=== PATIENT | female | born 1995 | race Caucasian/White ===

== ENCOUNTER 2017-03-18 19:10 | Emergency (ER) | payer MEDICAID, OTHER ==
[~2017-03-18] VITALS: Ht 172.7 cm; Wt 60.0 kg
[~2017-03-18 19:10] MED LIST: ALBU6.7H INH; BUSP5TAB PO; CELE20TA PO; CLAR10CA3 PO; MONOTAB PO; PERI8.6T PO; PHEN60SU RECTAL
[2017-03-18 19:13] VITALS: BP 134/69; PULSE 84; RESP 16; TEMP 98.1; O2SAT 98
--- NOTE | 2017-03-18 19:50 | PD ---
Physical Exam Date Seen by Provider: Mar 18, 2017 Time Seen by Provider: 19:49 Narrative 21 yo female here for syncope. Had an episode yesterday night while playing with fiance. Lasted about a minute. Came in today as they do not have a ride. No head injury as far as he knows. Feels pre syncopal today. No history of this in the past. Vitals stable in triage. Awaiting bed placement. Data Data Last Documented VS Vital Signs Date Time Temp Pulse Resp B/P (MAP) Pulse Ox O2 Delivery O2 Flow Rate FiO2 03/18/17 19:13 98.1 84 16 134/69 (90) 98 MDM Medical Record Reviewed: Yes Supervised Visit with ARIADNA: No Jarrett Koroma Mar 18, 2017 19:50
[2017-03-18] MEDS ORDERED: SODIUM CHLOR 0.9% 1000 ML INJ 1,000 ML IV ONE (20:37)
--- NOTE | 2017-03-18 20:39 | PD ---
HPI Chief Complaint: Seizure Time Seen by Provider: 20:28 Travel History International Travel<30 days: No Contact w/Intl Traveler<30days: No Traveled to known affect area: No History of Present Illness HPI 21-year-old female presents to the emergency department for evaluation of possible syncopal episode versus seizure that occurred last night around 6 PM. She states that her and her boyfriend were playing around with a stethoscope that she has when she had a shaking episode and lost consciousness for approximately a minute. Her boyfriend states that it was not like a grand mal seizure, but was mild shaking all over. The patient states that when this started, she noticed a left-sided headache and then does not remember the rest. Her boyfriend states that when she came to, she was confused. The patient states she felt like she was then had another episode while in the waiting room , but did not. The patient reports history of mood disorder and takes Celexa and BuSpar. She states her last menstrual cycle was one month ago and states that she could be . She denies any current chest pain or shortness of breath. No abdominal pain. No nausea, vomiting, diarrhea. When asked the patient she's ever had episodes like this before, she states she has them every few months, but has never been evaluated for them. She states she does not drive or have a seasonal driver's license. She denies any alcohol, tobacco, illicit drug use. PFSH Past Medical History Medical History: Denies Significant Hx Bipolar Disorder: Yes Anxiety: Yes Depression: Yes Tetanus Vaccination: Unknown ?: Unknown LMP: 01/07/2017 Past Surgical History Surgical History: No Previous Surgery Social History Alcohol Use: No Tobacco Use: No Substance Use: No Allergies-Medications (Allergen,Severity, Reaction): Coded Allergies: No Known Allergies (Verified , 03/18/17) Reported Meds & Prescriptions Reported Meds & Active Scripts Active Macrobid (Nitrofurantoin Monohydrate Macrocrystals) 100 Mg Capsule 100 Mg PO BID 7 Days Celexa (Citalopram Hydrobromide) 20 Mg Tab 20 Mg PO DAILY Buspirone (Buspirone HCl) 5 Mg Tab 5 Mg PO BID Proventil Hfa 6.7 GM Inh (Albuterol Sulfate) 90 Mcg/Act Aer 1 Puff INH Q6HR PRN Claritin (Loratadine) 10 Mg Cap 10 Mg PO DAILY Mononessa (Norgestimate-Ethinyl Estradiol) 0.25-35 Mg-Mcg Tab 1 Tab PO DAILY Review of Systems Except as stated in HPI: all other systems reviewed are Neg Physical Exam Narrative GENERAL: Well-nourished, well-developed female patient, ambulatory. Afebrile. SKIN: Focused skin assessment warm/dry. HEAD: Normocephalic. Atraumatic. EYES: No scleral icterus. No injection or drainage. PERRLA. EOM intact. NECK: Supple, trachea midline. No JVD or lymphadenopathy. CARDIOVASCULAR: Regular rate and rhythm without murmurs, gallops, or rubs. Bilateral radial and pedal pulses are 2+. RESPIRATORY: Breath sounds equal bilaterally. No accessory muscle use. Lungs sounds are clear to auscultation. GASTROINTESTINAL: Abdomen soft, non-tender, nondistended. MUSCULOSKELETAL: No cyanosis, or edema. BACK: Nontender without obvious deformity. No CVA tenderness. Data Data Last Documented VS Vital Signs Date Time Temp Pulse Resp B/P (MAP) Pulse Ox O2 Delivery O2 Flow Rate FiO2 03/18/17 19:13 98.1 84 16 134/69 (90) 98 Orders Orders Complete Blood Count With Diff (03/18/17 20:37) Drug Screen, Random Urine (03/18/17 20:37) Electrocardiogram (03/18/17 ) Ct Brain W/O Iv Contrast(Rout) (03/18/17 ) Blood Glucose (03/18/17 20:37) Ecg Monitoring (03/18/17 20:37) Iv Access Insert/Monitor (03/18/17 20:37) Oximetry (03/18/17 20:37) Comprehensive Metabolic Panel (03/18/17 20:37) Sodium Chlor 0.9% 1000 Ml Inj (Ns 1000 M (03/18/17 20:37) Sodium Chloride 0.9% Flush (Ns Flush) (03/18/17 20:45) Urinalysis - C+S If Indicated (03/18/17 20:37) Creatine Kinase (Cpk) (03/18/17 20:37) Troponin I (03/18/17 20:37) Magnesium (Mg) (03/18/17 20:37) Ed Urine Pregnancytest Poc (03/18/17 20:37) Urine Culture (03/18/17 20:00) Labs Laboratory Tests Test 03/18/17 20:00 03/18/17 20:50 Urine Color YELLOW Urine Turbidity HAZY Urine pH 5.5 Urine Specific [place] 1.028 Urine Protein TRACE mg/dL Urine Glucose (UA) NEG mg/dL Urine Ketones NEG mg/dL Urine Occult Blood TRACE Urine Nitrite NEG Urine Bilirubin NEG Urine Urobilinogen LESS THAN 2.0 MG/DL Urine Leukocyte Esterase MOD Urine RBC 3 /hpf Urine WBC 21 /hpf Urine Squamous Epithelial Cells 4 /hpf Urine Mucus FEW /lpf Microscopic Urinalysis Comment CULTURE INDICATED Urine Opiates Screen NEG Urine Barbiturates Screen NEG Urine Amphetamines Screen NEG Urine Benzodiazepines Screen NEG Urine Cocaine Screen NEG Urine Cannabinoids Screen NEG White Blood Count 6.7 TH/MM3 Red Blood Count 4.42 MIL/MM3 Hemoglobin 13.4 GM/DL Hematocrit 39.9 % Mean Corpuscular Volume 90.3 FL Mean Corpuscular Hemoglobin 30.4 PG Mean Corpuscular Hemoglobin Concent 33.7 % Red Cell Distribution Width 12.9 % Platelet Count 253 TH/MM3 Mean Platelet Volume 8.7 FL Neutrophils (%) (Auto) 60.5 % Lymphocytes (%) (Auto) 29.5 % Monocytes (%) (Auto) 7.6 % Eosinophils (%) (Auto) 1.6 % Basophils (%) (Auto) 0.8 % Neutrophils # (Auto) 4.1 TH/MM3 Lymphocytes # (Auto) 2.0 TH/MM3 Monocytes # (Auto) 0.5 TH/MM3 Eosinophils # (Auto) 0.1 TH/MM3 Basophils # (Auto) 0.1 TH/MM3 CBC Comment DIFF FINAL Differential Comment Blood Urea Nitrogen 14 MG/DL Creatinine 0.95 MG/DL Random Glucose 99 MG/DL Total Protein 8.1 GM/DL Albumin 4.1 GM/DL Calcium Level 9.1 MG/DL Magnesium Level 2.1 MG/DL Alkaline Phosphatase 98 U/L Aspartate Amino Transf (AST/SGOT) 11 U/L Alanine Aminotransferase (ALT/SGPT) 32 U/L Total Bilirubin 0.4 MG/DL Sodium Level 140 MEQ/L Potassium Level 3.5 MEQ/L Chloride Level 106 MEQ/L Carbon Dioxide Level 25.7 MEQ/L Anion Gap 8 MEQ/L Estimat Glomerular Filtration Rate 75 ML/MIN Total Creatine Kinase 35 U/L Troponin I 0.02 NG/ML MDM Medical Decision Making Medical Screen Exam Complete: Yes Emergency Medical Condition: Yes Medical Record Reviewed: Yes Interpretation(s) Last Impressions Head CT 03/18/17 0000 Signed Impressions: Service Date/Time: Saturday, March 18, 2017 21:25 - CONCLUSION: Negative noncontrast head CT. Alejandro Stewart MD Differential Diagnosis Seizure versus syncope versus electrolyte abnormality versus intracranial abnormality Narrative Course 21-year-old female presents to the emergency department for evaluation of possible syncope versus seizure. She states this happens every few months, but never been evaluated. EKG shows sinus rhythm, heart rate 88, no acute ST changes. CBC, CMP, magnesium, CK, troponin, UA, urine test are ordered and pending. CT of the brain is ordered and pending. Patient is given normal saline 1 L IV bolus. CBC shows no acute abnormality. CMP shows no acute abnormal. Magnesium is 2.1. CK is 35. Troponin is 0.02. UA shows moderate leukocyte esterase, 21 WBC , culture indicated. UPT is negative. Urine drug screen is negative. CT of the brain is negative. Nurse stated that the patient had an episode where she was shaking here in the emergency department. However, this was not seizure activity and she was coherent throughout her shakiness. She was also able to grab for the TV remote when it started to fall. The nurse stated this was definitely not seizure activity. I discussed the case with my attending physician, Dr. Perez, who agrees on plan and disposition. Patient is instructed to follow up with neurology. She is to return here for any acute, worsening of symptoms. The patient was discharged in stable condition with instructions, including return instructions and follow up instructions. Diagnosis Primary Impression: Syncope Qualified Codes: R55 - Syncope and collapse Additional Impression: Urinary tract infection Qualified Codes: N30.00 - Acute cystitis without hematuria Referrals: Neurologist call for appointment Primary Care Physician call for appointment Patient Instructions: General Instructions, Syncope (ED), Urinary Tract Infection in Women (ED) Additional Instructions: Take antibiotic as directed until gone. Follow-up with your primary care physician and neurologist. Return to the emergency department for any acute worsening of symptoms. Med/Other Pt SpecificInfo: Prescription(s) given, No Change to Meds Scripts Nitrofurantoin Monohydrate Macrocrystals (Macrobid) 100 Mg Capsule 100 MG PO BID for Infection for 7 Days, #14 CAP 0 Refills Prov: Miladys Long 03/18/17 Disposition: 01 DISCHARGE HOME Condition: Stable Miladys Long Mar 18, 2017 20:39
[2017-03-18] MEDS ORDERED: SODIUM CHLORIDE 0.9% FLUSH 10 ML FLUSH IVF PRN (20:45)
[2017-03-18 21:11] LABS: BLOOD, URINE TRACE (NEG); COMMENT (UR) CULTURE INDICATED; CULTURE IF INDICATED CULTURE INDICATED; GLUCOSE,URINE NEG (NEG); KETONE, URINE NEG (NEG); MUCUS URINE FEW /lpf (OCC); NITRITE,URINE NEG (NEG); PH, URINE 5.5 (5.0-8.5); SQUAMOUS EPITHELIAL CELL URINE 4 /hpf (0-5); URINE COLOR YELLOW (YELLW/STRAW)
[2017-03-18 21:28] LABS: AUTOMATED NEUTROPHIL # 4.1 TH/MM3 (1.8-7.7); BASOPHIL # 0.1 TH/MM3 (0-0.2); BASOPHIL % 0.8 % (0.0-2.0); EOSINOPHIL # 0.1 TH/MM3 (0-0.4); EOSINOPHIL % 1.6 % (0.0-4.0); HEMATOCRIT 39.9 % (35.0-46.0); HEMO FLAGS DIFF FINAL; LYMPH % 29.5 % (9.0-44.0); MEAN CELL VOLUME 90.3 FL (80.0-100.0); MEAN CORPUSCULAR HEMOGLOBIN 30.4 PG (27.0-34.0); MEAN CORPUSCULAR HGB CONC 33.7 % (32.0-36.0); MONO % 7.6 % (0.0-8.0); NEUT % 60.5 % (16.0-70.0); PLATELET COUNT 253 TH/MM3 (150-450); RED BLOOD COUNT 4.42 MIL/MM3 (4.00-5.30); RED CELL DISTRIBUTION WIDTH 12.9 % (11.6-17.2); WHITE BLOOD COUNT 6.7 TH/MM3 (4.0-11.0)
[2017-03-18 21:36] LABS: ANION GAP 8 MEQ/L (5-15); AST (GOT) 11 U/L (16-38); BICARBONATE 25.7 MEQ/L (21.0-32.0); BLOOD UREA NITROGEN 14 MG/DL (7-18); CHLORIDE 106 MEQ/L (98-107); GLOMERULAR FILTRATION RATE 75 ML/MIN (>89); MAGNESIUM 2.1 MG/DL (1.5-2.5); POTASSIUM 3.5 MEQ/L (3.5-5.1); SODIUM (NA) 140 MEQ/L (136-145)
[2017-03-18 21:37] LABS: ALT (GPT) 32 U/L (9-42)
[2017-03-18 21:41] LABS: ALKALINE PHOSPHATASE 98 U/L (45-117); TOTAL BILIRUBIN ADULT 0.4 MG/DL (0.2-1.0)
[2017-03-18 21:42] LABS: CREATINE KINASE 35 U/L (26-192)
--- NOTE | 2017-03-18 22:15 | RADRPT ---
EXAM DATE/TIME: 03/18/2017 21:25 [facility] COMPARISON: No previous studies available for comparison. INDICATIONS : Seizures. RADIATION DOSE: 56.35 CTDIvol (mGy) MEDICAL HISTORY : None SURGICAL HISTORY : None. ENCOUNTER: Initial ACUITY: 1 day PAIN SCALE: 0/10 LOCATION: cranial TECHNIQUE: Multiple contiguous axial images were obtained of the head. Using automated exposure control and adj ustment of the mA and/or kV according to patient size, radiation dose was kept as low as reasonably a chievable to obtain optimal diagnostic quality images. DICOM format image data is available electro nically for review and comparison. FINDINGS: CEREBRUM: The ventricles are normal. No evidence of midline shift, mass lesion, hemorrhage or acute infarction . No extra-axial fluid collections are seen. POSTERIOR FOSSA: The cerebellum and brainstem demonstrate no abnormality. The 4th ventricle is midline. The cerebell opontine angle is unremarkable. EXTRACRANIAL: Visualized sinuses are clear. SKULL: The calvaria is intact. No evidence of skull fracture. CONCLUSION: Negative noncontrast head CT. Alejandro Stewart MD on March 18, 2017 at 22:12 Board Certified Radiologist. This report was verified electronically.
[2017-03-18] MEDS ORDERED: MACR100C2 PO (22:59)
[2017-03-18] MEDS ORDERED: NITROFURANTOIN MONOHYD MACROCR 100 MG CAP PO ONE (23:15)
[2017-03-18 23:42] VITALS: BP 102/61
--- NOTE | 2017-03-19 12:02 | EKG ---
Date Performed: 03/18/2017 Time Performed: 20:44:03 PTAGE: 21 years EKG: Sinus rhythm WITH SINUS ARRHYTHMIA NORMAL ECG NO PREVIOUS TRACING DOCTOR: Scar Perez Interpretating Date/Time 03/19/2017 12:00:47
== END 2017-03-18 23:46 | disposition home or self-care (01) ==
LOC: NEPC 19:10
DX: R55 Syncope and collapse (principal); N30.00 Acute cystitis without hematuria; B96.89 Other specified bacterial agents as the cause of diseases classified elsewhere; Z79.899 Other long term (current) drug therapy
CPT/HCPCS: 70450; 80053; 80307; 81001; 82550; 83735; 84484; 84703; 85025; 87086; 93005; 96360; 99285; J7030

== ENCOUNTER 2017-09-16 20:42 | Emergency (ER) | payer OTHER ==
[~2017-09-16 20:42] MED LIST changes: +MACR100C2 PO; -PERI8.6T PO; -PHEN60SU RECTAL
[2017-09-16 20:48] VITALS: BP 122/75; PULSE 113; RESP 18; TEMP 97.6; O2SAT 94
--- NOTE | 2017-09-16 21:55 | RADRPT ---
EXAM DATE/TIME: 09/16/2017 21:01 [facility] COMPARISON: No previous studies available for comparison. INDICATIONS : Coughing up blood and chest pain that started today. MEDICAL HISTORY : None. SURGICAL HISTORY : None. ENCOUNTER: Initial ACUITY: 1 day PAIN SCORE: 2/10 LOCATION: Bilateral chest FINDINGS: PA and lateral views of the chest demonstrate the lungs to be symmetrically aerated without evidence of mass, infiltrate or effusion. The cardiomediastinal contours are unremarkable. Osseous structure s are intact. CONCLUSION: No acute disease. Declan Rai MD on September 16, 2017 at 21:52 Board Certified Radiologist. This report was verified electronically.
[2017-09-16] MEDS ORDERED: OMEP20TA93 PO (23:08)
[2017-09-16] MEDS ORDERED: AZIT250T3 PO (23:08)
[2017-09-16] MEDS ORDERED: CLAR10CA3 PO (23:08)
[2017-09-16] MEDS ORDERED: ALBU6.7H INH (23:08)
--- NOTE | 2017-09-16 23:08 | PD ---
HPI Chief Complaint: Respiratory Symptoms Time Seen by Provider: 22:44 Travel History International Travel<30 days: No Contact w/Intl Traveler<30days: No Traveled to known affect area: No History of Present Illness HPI 22-year-old female complains of hemoptysis a minute amount which occurred a couple hours prior to ER arrival. She also reports some dyspnea. She describes sore throat as well. She has had no fever. She describes a cough for about 8 weeks. She complains of runny nose and some chest pain that occurs with the coughing. She has had no vomiting. She denies diarrhea. She does not smoke. PFS Past Medical History Bipolar Disorder: Yes Anxiety: Yes Depression: Yes ?: Unknown LMP: 07/10/2017 Past Surgical History Surgical History: No Previous Surgery Social History Alcohol Use: No Tobacco Use: No Substance Use: No Allergies-Medications (Allergen,Severity, Reaction): Coded Allergies: No Known Allergies (Verified , 03/18/17) Reported Meds & Prescriptions Reported Meds & Active Scripts Active Macrobid (Nitrofurantoin Monohydrate Macrocrystals) 100 Mg Capsule 100 Mg PO BID 7 Days Celexa (Citalopram Hydrobromide) 20 Mg Tab 20 Mg PO DAILY Buspirone (Buspirone HCl) 5 Mg Tab 5 Mg PO BID Proventil Hfa 6.7 GM Inh (Albuterol Sulfate) 90 Mcg/Act Aer 1 Puff INH Q6HR PRN Claritin (Loratadine) 10 Mg Cap 10 Mg PO DAILY Mononessa (Norgestimate-Ethinyl Estradiol) 0.25-35 Mg-Mcg Tab 1 Tab PO DAILY Review of Systems Except as stated in HPI: all other systems reviewed are Neg General / Constitutional: No: Fever Eyes: No: Diploplia Cardiovascular: Positive: Chest Pain or Discomfort Respiratory: Positive: Cough Physical Exam Narrative GENERAL: 22-year-old female pleasant well-nourished well-developed no acute distress Vital Signs Date Time Temp Pulse Resp B/P (MAP) Pulse Ox O2 Delivery O2 Flow Rate FiO2 09/16/17 20:48 97.6 113 18 122/75 (91) 94 SKIN: Warm and dry. HEAD: Atraumatic. Normocephalic. EYES: Pupils equal and round. No scleral icterus. No injection or drainage. ENT: No nasal bleeding or discharge. Mucous membranes pink and moist. NECK: Trachea midline. No JVD. CARDIOVASCULAR: Heart rate assessed by radial artery palpation at about 10:40 PM was 90. It was regular. RESPIRATORY: Lungs clear. No tachypnea or dyspnea. GASTROINTESTINAL: Abdomen soft, non-tender, nondistended. Hepatic and splenic margins not palpable. MUSCULOSKELETAL: Extremities without clubbing, cyanosis, or edema. No obvious deformities. NEUROLOGICAL: Awake and alert. No obvious cranial nerve deficits. Motor grossly within normal limits. Five out of 5 muscle strength in the arms and legs. Normal speech. PSYCHIATRIC: Appropriate mood and affect; insight and judgment normal. Data Data Last Documented VS Vital Signs Date Time Temp Pulse Resp B/P (MAP) Pulse Ox O2 Delivery O2 Flow Rate FiO2 09/16/17 20:48 97.6 113 18 122/75 (91) 94 Vital signs reviewed Orders Orders Complete Blood Count With Diff (09/16/17 20:51) Basic Metabolic Panel (Bmp) (09/16/17 20:51) Chest, Pa & Lat (09/16/17 ) Urinalysis - C+S If Indicated (09/16/17 20:51) Ed Urine Pregnancytest Poc (09/16/17 20:51) Coag Profile (09/16/17 20:51) MDM Medical Decision Making Medical Screen Exam Complete: Yes Emergency Medical Condition: Yes Medical Record Reviewed: Yes Differential Diagnosis Pneumonia, CHF, URI, anemia, metabolic disarray Narrative Course Chest x-ray shows no acute disease Patient is quite well-appearing overall stable vital signs. Presentation considered to be most in keeping with postnasal drip with or without bronchitis and/or mild pharyngitis. Streptococcal pharyngitis considered less likely overall. Scripts as below. Diagnosis Primary Impression: URI (upper respiratory infection) Qualified Codes: J06.9 - Acute upper respiratory infection, unspecified Additional Impressions: Postnasal discharge Cough Referrals: Primary Care Physician call for appointment Med/Other Pt SpecificInfo: Prescription(s) given Scripts Omeprazole (Omeprazole) 20 Mg Tab 20 MG PO DAILY, #30 TAB 0 Refills Prov: Arthur Mccord MD 09/16/17 Azithromycin (Azithromycin) 250 Mg Tab 250 MG PO DIRECTED for Infection, #6 TAB 0 Refills Take 2 tabs (500 mg) on day 1 then 1 tab daily x 4 days. Prov: Arthur Mccord MD 09/16/17 Albuterol 6.7 GM Inh (Proventil Hfa 6.7 GM Inh) 90 Mcg/Act Aer 1 PUFF INH Q6HR Y for SHORTNESS OF BREATH, #1 INHALER 5 Refills Prov: Arthur Mccord MD 09/16/17 Loratadine (Claritin) 10 Mg Cap 10 MG PO DAILY for Allergy Management, #30 CAP 11 Refills Prov: Arthur Mccord MD 09/16/17 Disposition: 01 DISCHARGE HOME Condition: Stable Arthur Mccord MD Sep 16, 2017 23:08
[2017-09-16] MEDS ORDERED: ALBUTEROL SULFATE 90 MCG/ACT HFA 8 GM INHALER INH ONE (23:15)
[2017-09-16] MEDS ORDERED: diphenhydrAMINE HCL 25 MG CAP PO ONE (23:15)
[2017-09-16] MEDS ORDERED: AZITHROMYCIN 250 MG TAB PO ONE (23:15)
== END 2017-09-16 23:35 | disposition home or self-care (01) ==
LOC: NED 20:42 → NEPD 23:35
DX: J06.9 Acute upper respiratory infection, unspecified (principal); F31.9 Bipolar disorder, unspecified
CPT/HCPCS: 71046; 84703; 99284

== ENCOUNTER 2017-10-07 14:56 | Emergency (ER) | payer OTHER ==
[~2017-10-07 14:56] MED LIST changes: +AZIT250T3 PO; +OMEP20TA93 PO
[2017-10-07 15:13] VITALS: BP 112/66; PULSE 78; RESP 16; TEMP 97.4; O2SAT 99
[2017-10-07 16:18] LABS: BILIRUBIN, URINE NEG (NEG); BLOOD, URINE LARGE (NEG); GLUCOSE,URINE NEG (NEG); KETONE, URINE TRACE mg/dL (NEG); MUCUS URINE FEW /lpf (OCC); NITRITE,URINE NEG (NEG); SQUAMOUS EPITHELIAL CELL URINE 5 /hpf (0-5); URINE COLOR YELLOW (YELLW/STRAW); URINE LEUKOCYTE ESTERASE TRACE (NEG)
--- NOTE | 2017-10-07 16:57 | PD ---
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 She is also complaining of pelvic pain and abnormal vaginal discharge and odor 1 year. Says she has been treated for urinary tract infections every month for the past 11 months with reoccurrence. Denies risk of and since she last had intercourse 5 months ago. Denies dysuria. Reports hematuria, increased urine frequency, hesitancy. Denies fever , vomiting, abdominal pain. Has been taking ibuprofen and Aleve with some relief of her pain. Rates pain 10. Describes it as a pressure. Primary care provider is Dr. Rg. No known allergies. History of chronic UTI and asthma. Has no other medical complaints. No other modifying factors or associated signs and symptoms. PFSH Past Medical History Medical History: Denies Significant Hx Bipolar Disorder: Yes Anxiety: Yes Depression: Yes Diminished Hearing: No ?: Not LMP: 2 WEEKS AGO Past Surgical History Surgical History: No Previous Surgery Social History Alcohol Use: No Tobacco Use: No Substance Use: No Allergies-Medications (Allergen,Severity, Reaction): Coded Allergies: No Known Allergies (Verified , 03/18/17) Reported Meds & Prescriptions Reported Meds & Active Scripts Active Omeprazole 20 Mg Tab 20 Mg PO DAILY Azithromycin 250 Mg Tab 250 Mg PO DIRECTED Take 2 tabs (500 mg) on day 1 then 1 tab daily x 4 days. Proventil Hfa 6.7 GM Inh (Albuterol Sulfate) 90 Mcg/Act Aer 1 Puff INH Q6HR PRN Claritin (Loratadine) 10 Mg Cap 10 Mg PO DAILY Macrobid (Nitrofurantoin Monohydrate Macrocrystals) 100 Mg Capsule 100 Mg PO BID 7 Days Celexa (Citalopram Hydrobromide) 20 Mg Tab 20 Mg PO DAILY Buspirone (Buspirone HCl) 5 Mg Tab 5 Mg PO BID Mononessa (Norgestimate-Ethinyl Estradiol) 0.25-35 Mg-Mcg Tab 1 Tab PO DAILY Review of Systems Except as stated in HPI: all other systems reviewed are Neg Physical Exam Narrative GENERAL: Well-nourished, well-developed female patient, in no acute distress; afebrile, nontoxic-appearing SKIN: Warm and dry. HEAD: Atraumatic. Normocephalic. EYES: Pupils equal and round. No scleral icterus. No injection or drainage. ENT: Mucous membranes pink and moist. NECK: Trachea midline. No lymphadenopathy. CARDIOVASCULAR: Regular rate and rhythm. No murmur appreciated. RESPIRATORY: No accessory muscle use. Clear to auscultation. Breath sounds equal bilaterally. GASTROINTESTINAL: Abdomen soft, non-tender, nondistended. Bilateral pelvic region nontender to palpation. Hepatic and splenic margins not palpable. No guarding, rigidity, rebound tenderness. Bladder is tender and nondistended. PELVIC: Exam done in the presence of a nurse. Speculum exam reveals nonedematous and nonerythematous cervix minimal amount of bright red, purulent drainage from the cervix; nonodorous. Bimanual exam reveals no palpable masses or adnexa tenderness, no uterine tenderness. No cervical motion tenderness. BACK: No CVA tenderness. MUSCULOSKELETAL: No obvious deformities. No clubbing. No cyanosis. No edema. NEUROLOGICAL: Awake and alert. No obvious cranial nerve deficits. Motor grossly within normal limits. Normal speech. PSYCHIATRIC: Appropriate mood and affect; insight and judgment normal. Data Data Last Documented VS Vital Signs Date Time Temp Pulse Resp B/P (MAP) Pulse Ox O2 Delivery O2 Flow Rate FiO2 10/07/17 15:13 97.4 78 16 112/66 (81) 99 Orders Orders Gc And Chlamydia Pcr (10/07/17 15:28) Wet Prep Profile (10/07/17 15:28) Urinalysis - C+S If Indicated (10/07/17 15:28) Ed Urine Pregnancytest Poc (10/07/17 15:28) Ibuprofen (Motrin) (10/07/17 17:00) Labs Laboratory Tests Test 10/07/17 15:50 Urine Color YELLOW Urine Turbidity CLEAR Urine pH 6.0 Urine Specific [place] 1.026 Urine Protein TRACE mg/dL Urine Glucose (UA) NEG mg/dL Urine Ketones TRACE mg/dL Urine Occult Blood LARGE Urine Nitrite NEG Urine Bilirubin NEG Urine Urobilinogen 2.0 MG/DL Urine Leukocyte Esterase TRACE Urine RBC /hpf Urine Squamous Epithelial Cells 5 /hpf Urine Mucus FEW /lpf Microscopic Urinalysis Comment CULT NOT INDICATED Clue Cells (Wet Prep) NONE SEEN Vaginal Trichomonas (Wet Prep) NONE SEEN Vaginal Yeast (Wet Prep) NONE SEEN MDM Medical Decision Making Medical Screen Exam Complete: Yes Emergency Medical Condition: Yes Medical Record Reviewed: Yes Differential Diagnosis Urinary tract infection, cystitis, chlamydia, gonorrhea, PID, BV Narrative Course 22-year-old female with symptoms of urinary and vaginal symptoms. Wet prep, chlamydia, gonorrhea, urinalysis, UPT ordered. 1658: Urinalysis without signs of infection. Bacterial vaginosis, Trichomonas, vaginal yeast negative. Chlamydia and gonorrhea pending. Pelvic exam is unremarkable and I do not feel it necessary to treat empirically for pelvic disease. I am suspecting her vaginal spotting/bleeding is either an early onset menses or onset of menses. Instructed patient to follow-up with edge trimmer. Patient provided follow-up information for [facility], and [facility]. Instructed patient to follow up with primary care provider. Patient verbalizes understanding and agreement with treatment plan. Patient is medically cleared and stable for discharge. Discussed reasons to return to the emergency department. Patient agrees with treatment plan. The patients vital signs are stable and the patient is stable for outpatient follow-up and treatment. Patient discharged home, stable and in no acute distress. Diagnosis Primary Impression: Vaginal bleeding Referrals: [facility] Lead Auditor Primary Care Physician [facility] Dept. Patient Instructions: General Instructions, Interstitial Cystitis (ED) Departure Forms: School Release, Return to School Date: Oct 08, 2017 Tests/Procedures, Work Release Enter return to work date: Oct 08, 2017 Additional Instructions: Ibuprofen or Tylenol as directed and as needed for pain Heating pad to affected area as needed to help reduce pain Follow-up with edge trimmer Follow-up with primary care provider Return to the emergency department immediately with worsening of symptoms Med/Other Pt SpecificInfo: No Change to Meds, No Meds Exist/No RX given Disposition: 01 DISCHARGE HOME Condition: Stable Aracelis Davalos Oct 07, 2017 16:57
[2017-10-07] MEDS ORDERED: IBUPROFEN 800 MG TAB PO ONE (17:00)
== END 2017-10-07 17:31 | disposition home or self-care (01) ==
LOC: NEPD 14:56
DX: N93.9 Abnormal uterine and vaginal bleeding, unspecified (principal); J45.909 Unspecified asthma, uncomplicated
CPT/HCPCS: 81001; 84703; 87210; 87491; 87591; 99284

== ENCOUNTER 2017-10-09 14:04 | Emergency (ER) | payer OTHER ==
[~2017-10-09] VITALS: Ht 172.7 cm; Wt 67.0 kg
[2017-10-09 14:15] VITALS: BP 121/58; PULSE 73; RESP 17; TEMP 97.5; O2SAT 99
[2017-10-09 16:11] LABS: AMORPHOUS SEDIMENT, URINE RARE; BACTERIA, URINE OCC /hpf; BILIRUBIN, URINE NEG (NEG); BLOOD, URINE LARGE (NEG); GLUCOSE,URINE NEG (NEG); KETONE, URINE 40 mg/dL (NEG); MUCUS URINE MANY /lpf (OCC); NITRITE,URINE NEG (NEG); SQUAMOUS EPITHELIAL CELL URINE 32 /hpf (0-5); URINE COLOR LIGHT-YELLOW (YELLW/STRAW); URINE LEUKOCYTE ESTERASE LARGE (NEG)
[2017-10-09] MEDS ORDERED: SODIUM CHLORIDE 0.9% FLUSH 10 ML FLUSH IVF PRN (16:15)
[2017-10-09] MEDS ORDERED: KETOROLAC TROMETHAMINE 30 MG/ML (IVP) VIAL IV PUSH ONE (16:15)
--- NOTE | 2017-10-09 16:18 | PD ---
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 She is concerned she is and having a miscarriage. She was seen here on October 07 with vaginal spotting, which has worsened. She says she is bleeding through approximately 10 pads and tampons per day. Denies fever. Reports vomiting one time this morning. Denies dysuria, hematuria. Denies lightheadedness. Says she has been feeling dizzy today. Her last menstrual period was 2 weeks ago. Rates pain 9/10. Has tried taking ibuprofen with no relief of symptoms. No known relieving factors. No known aggravating factors. Primary care provider is Dr. Rg. No known allergies. Denies significant past medical history. Has no other medical complaints. No other modifying factors or associated signs and symptoms. PFSH Past Medical History Bipolar Disorder: Yes Anxiety: Yes Depression: Yes Diminished Hearing: No ?: Unknown Past Surgical History Surgical History: No Previous Surgery Social History Alcohol Use: No Tobacco Use: No Substance Use: No Allergies-Medications (Allergen,Severity, Reaction): Coded Allergies: No Known Allergies (Verified , 03/18/17) Reported Meds & Prescriptions Reported Meds & Active Scripts Active Keflex (Cephalexin) 500 Mg Cap 500 Mg PO Q12H 7 Days Pyridium (Phenazopyridine HCl) 100 Mg Tab 100 Mg PO Q8H PRN 3 Days Omeprazole 20 Mg Tab 20 Mg PO DAILY Azithromycin 250 Mg Tab 250 Mg PO DIRECTED Take 2 tabs (500 mg) on day 1 then 1 tab daily x 4 days. Proventil Hfa 6.7 GM Inh (Albuterol Sulfate) 90 Mcg/Act Aer 1 Puff INH Q6HR PRN Claritin (Loratadine) 10 Mg Cap 10 Mg PO DAILY Macrobid (Nitrofurantoin Monohydrate Macrocrystals) 100 Mg Capsule 100 Mg PO BID 7 Days Celexa (Citalopram Hydrobromide) 20 Mg Tab 20 Mg PO DAILY Buspirone (Buspirone HCl) 5 Mg Tab 5 Mg PO BID Mononessa (Norgestimate-Ethinyl Estradiol) 0.25-35 Mg-Mcg Tab 1 Tab PO DAILY Review of Systems Except as stated in HPI: all other systems reviewed are Neg Physical Exam Narrative GENERAL: Well-nourished, well-developed female patient, in no acute distress; afebrile SKIN: Warm and dry. HEAD: Atraumatic. Normocephalic. EYES: Pupils equal and round. No scleral icterus. No injection or drainage. ENT: Mucosa pink and moist. Airway patent. NECK: Trachea midline. CARDIOVASCULAR: Regular rate and rhythm. No murmur appreciated. RESPIRATORY: No accessory muscle use. Clear to auscultation. Breath sounds equal bilaterally. GASTROINTESTINAL: Abdomen soft, tenderness on palpation to lower pelvic region, nondistended. Hepatic and splenic margins not palpable. Bowel sounds are active 4 quadrants. Nonrigid. No guarding. BACK: No CVA tenderness. MUSCULOSKELETAL: No obvious deformities. No clubbing. No cyanosis. No edema. NEUROLOGICAL: Awake and alert. Oriented 3. No obvious cranial nerve deficits. Motor grossly within normal limits. Normal speech. PSYCHIATRIC: Appropriate mood and affect; insight and judgment normal. Data Data Last Documented VS Vital Signs Date Time Temp Pulse Resp B/P (MAP) Pulse Ox O2 Delivery O2 Flow Rate FiO2 10/09/17 19:17 74 17 118/68 (85) 100 10/09/17 14:15 97.5 Orders Orders Urinalysis - C+S If Indicated (10/09/17 14:37) Ed Urine Pregnancytest Poc (10/09/17 14:37) Complete Blood Count With Diff (10/09/17 16:01) Basic Metabolic Panel (Bmp) (10/09/17 16:01) Iv Access Insert/Monitor (10/09/17 16:01) Sodium Chloride 0.9% Flush (Ns Flush) (10/09/17 16:15) Ketorolac Inj (Toradol Inj) (10/09/17 16:15) Urine Culture (10/09/17 15:39) Ceftriaxone Inj (Rocephin Inj) (10/09/17 17:00) Us Pelvis Comp W Doppler (10/09/17 ) Ed Discharge Order (10/09/17 18:56) Labs Laboratory Tests Test 10/09/17 15:39 10/09/17 16:17 Urine Color LIGHT-YELLOW Urine Turbidity HAZY Urine pH 5.0 Urine Specific [place] 1.023 Urine Protein TRACE mg/dL Urine Glucose (UA) NEG mg/dL Urine Ketones 40 mg/dL Urine Occult Blood LARGE Urine Nitrite NEG Urine Bilirubin NEG Urine Urobilinogen LESS THAN 2.0 MG/DL Urine Leukocyte Esterase LARGE Urine RBC 160 /hpf Urine WBC 34 /hpf Urine Squamous Epithelial Cells 32 /hpf Urine Amorphous Sediment RARE Urine Bacteria OCC /hpf Urine Mucus MANY /lpf Microscopic Urinalysis Comment CULTURE INDICATED White Blood Count 6.3 TH/MM3 Red Blood Count 4.40 MIL/MM3 Hemoglobin 12.5 GM/DL Hematocrit 38.2 % Mean Corpuscular Volume 86.8 FL Mean Corpuscular Hemoglobin 28.3 PG Mean Corpuscular Hemoglobin Concent 32.6 % Red Cell Distribution Width 15.1 % Platelet Count 226 TH/MM3 Mean Platelet Volume 8.7 FL Neutrophils (%) (Auto) 57.7 % Lymphocytes (%) (Auto) 32.9 % Monocytes (%) (Auto) 5.5 % Eosinophils (%) (Auto) 3.4 % Basophils (%) (Auto) 0.5 % Neutrophils # (Auto) 3.6 TH/MM3 Lymphocytes # (Auto) 2.1 TH/MM3 Monocytes # (Auto) 0.3 TH/MM3 Eosinophils # (Auto) 0.2 TH/MM3 Basophils # (Auto) 0.0 TH/MM3 CBC Comment DIFF FINAL Differential Comment Blood Urea Nitrogen 14 MG/DL Creatinine 0.65 MG/DL Random Glucose 60 MG/DL Calcium Level 9.3 MG/DL Sodium Level 140 MEQ/L Potassium Level 3.6 MEQ/L Chloride Level 106 MEQ/L Carbon Dioxide Level 25.0 MEQ/L Anion Gap 9 MEQ/L Estimat Glomerular Filtration Rate 115 ML/MIN [facility] Medical Decision Making Medical Screen Exam Complete: Yes Emergency Medical Condition: Yes Medical Record Reviewed: Yes Differential Diagnosis Abnormal uterine bleeding, menses, vaginal bleeding Narrative Course This is a 22-year-old female that I saw 2 days ago for vaginal bleeding. At that time she had vaginal spotting that had just started. I did a pelvic exam and she was negative for chlamydia, gonorrhea, trichomonas, bacterial yeast, bacterial vaginosis; her urinalysis was negative; UPT was negative. She returns today with increasing vaginal bleeding. Repeat UPT is negative. Urinalysis, CBC, BMP, pelvic ultrasound, IV, Toradol ordered. 165: Urinalysis for signs of infection. Reflex urine culture. Rocephin 1 g IV ordered. 184: Pelvic ultrasound concludes: Pelvis Ultrasound 10/09/17 0000 Signed Impressions: Service Date/Time: Monday, October 09, 2017 16:59 - CONCLUSION: Complicated cystic mass involving the right ovary. Alejandro Vargas MD Discussed ultrasound findings with the patient and she was provided a copy of the ultrasound report. Discussed findings with Dr. Schroeder and she recommends follow-up with sail finisher machine within 1 week. Keflex, ibuprofen prescribed for home. Instructed patient to follow-up with sail finisher machine within 1 week. Patient verbalized understanding and agreement. Instructed patient to follow up with primary care provider. Patient verbalizes understanding and agreement with treatment plan. Patient is medically cleared and stable for discharge. Discussed reasons to return to the emergency department. Patient agrees with treatment plan. The patients vital signs are stable and the patient is stable for outpatient follow-up and treatment. Patient discharged home, stable and in no acute distress. 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 [facility] Primary Care Physician Patient Instructions: General Instructions, Ovarian Cyst (ED), Urinary Tract Infection in Women (ED) Departure Forms: School Release, Return to School Date: Oct 14, 2017 Tests/Procedures Additional Instructions: Take antibiotics as prescribed and complete full course Take Pyridium for bladder spasms: Pyridium will turn your urine bright orange Drink plenty of fluids Maintain good personal hygiene Follow-up with primary care provider Return to the emergency department immediately with worsening of symptoms Med/Other Pt SpecificInfo: Prescription(s) given Scripts Cephalexin (Keflex) 500 Mg Cap 500 MG PO Q12H for Infection for 7 Days, #14 CAP 0 Refills Prov: Aracelis Davalos CONE CLASSIFIER TENDER 10/09/17 Phenazopyridine (Pyridium) 100 Mg Tab 100 MG PO Q8H Y for DYSURIA for 3 Days, #9 TAB 0 Refills Prov: Aracelis Davalos CONE CLASSIFIER TENDER 10/09/17 Disposition: 01 DISCHARGE HOME Condition: Stable Aracelis Davalos Oct 09, 2017 16:18
[2017-10-09] MEDS ORDERED: CEPH-460 PO (16:56)
[2017-10-09] MEDS ORDERED: PHEN0.4T PO (16:56)
[2017-10-09] MEDS ORDERED: cefTRIAXone INJ 1,000 MG in SODIUM CHLORIDE 0.9% INJ 100 ML IV ONE (17:00)
[2017-10-09 17:09] LABS: AUTOMATED NEUTROPHIL # 3.6 TH/MM3 (1.8-7.7); BASOPHIL % 0.5 % (0.0-2.0); EOSINOPHIL # 0.2 TH/MM3 (0-0.4); EOSINOPHIL % 3.4 % (0.0-4.0); HEMATOCRIT 38.2 % (35.0-46.0); HEMOGLOBIN 12.5 GM/DL (11.6-15.3); LYMPH % 32.9 % (9.0-44.0); LYMPHOCYTE # 2.1 TH/MM3 (1.0-4.8); MEAN CELL VOLUME 86.8 FL (80.0-100.0); MEAN CORPUSCULAR HEMOGLOBIN 28.3 PG (27.0-34.0); MEAN CORPUSCULAR HGB CONC 32.6 % (32.0-36.0); MEAN PLATELET VOLUME 8.7 FL (7.0-11.0); MONO % 5.5 % (0.0-8.0); MONOCYTE # 0.3 TH/MM3 (0-0.9); NEUT % 57.7 % (16.0-70.0); PLATELET COUNT 226 TH/MM3 (150-450); RED CELL DISTRIBUTION WIDTH 15.1 % (11.6-17.2); WHITE BLOOD COUNT 6.3 TH/MM3 (4.0-11.0)
--- NOTE | 2017-10-09 17:41 | RADRPT ---
EXAM DATE/TIME: 10/09/2017 16:59 [facility] COMPARISON: No previous studies available for comparison. INDICATIONS : Cramping and abnormal bleeding. MEDICAL HISTORY : Bipolar disorder. Depression. Anxiety. SURGICAL HISTORY : None. ENCOUNTER: Initial ACUITY: 1 week PAIN SCORE: 4/10 LOCATION: Bilateral pelvis MEASUREMENTS: UTERUS: 7.4 x 3.5 x 3.9 cm ENDOMETRIAL STRIPE: 13 mm RIGHT OVARY: 5.5 x 4.5 x 4.4 cm LEFT OVARY: 3.0 x 2.2 x 1.8 cm FINDINGS: UTERUS: The myometrium has homogeneous echotexture without mass. RIGHT OVARY: Slightly greater than 4 cm complicated cystic mass. LEFT OVARY: Ovary contains no mass or significant cystic lesion. MISCELLANEOUS: No free fluid. CONCLUSION: Complicated cystic mass involving the right ovary. Alejandro Vargas MD on October 09, 2017 at 17:37 Board Certified Radiologist. This report was verified electronically.
[2017-10-09 17:47] LABS: CALCIUM 9.3 MG/DL (8.5-10.1); CREATININE 0.65 MG/DL (0.50-1.00)
[2017-10-09 19:17] VITALS: BP 118/68
== END 2017-10-09 19:19 | disposition home or self-care (01) ==
LOC: NEPD 14:04
DX: N39.0 Urinary tract infection, site not specified (principal); R31.9 Hematuria, unspecified; N83.201 Unspecified ovarian cyst, right side; F31.9 Bipolar disorder, unspecified
CPT/HCPCS: 76856; 80048; 81001; 84703; 85025; 87086; 93975; 96365; 96366; 96375; 99284; J0696; J1885

== ENCOUNTER 2017-10-12 15:27 | Emergency (ER) | payer OTHER ==
[~2017-10-12] VITALS: Ht 167.6 cm; Wt 63.0 kg
[~2017-10-12 15:27] MED LIST changes: +CEPH-460 PO; +PHEN0.4T PO
[2017-10-12 15:35] VITALS: BP 111/63; PULSE 75; RESP 16; TEMP 98.5; O2SAT 100
[2017-10-12 15:52] LABS: BILIRUBIN, URINE NEG (NEG); BLOOD, URINE NEG (NEG); GLUCOSE,URINE NEG (NEG); KETONE, URINE NEG (NEG); NITRITE,URINE NEG (NEG); PH, URINE 6.5 (5.0-8.5); URINE COLOR YELLOW (YELLW/STRAW); URINE LEUKOCYTE ESTERASE NEG (NEG)
[2017-10-12] MEDS ORDERED: IBUP1TAB5 PO (15:59)
[2017-10-12] MEDS ORDERED: TYLE325T PO (15:59)
[2017-10-12 16:05] LABS: AMORPHOUS SEDIMENT, URINE FEW; WBC, URINE 0-2 /hpf (0-5)
--- NOTE | 2017-10-12 16:39 | PD ---
HPI Chief Complaint: Complaint Time Seen by Provider: 16:18 Travel History International Travel<30 days: No Contact w/Intl Traveler<30days: No Traveled to known affect area: No History of Present Illness HPI 22-year-old female patient with recent history of right ovarian cyst that was found several days ago, has had several weeks history of lower abdominal pains, pinkish vaginal discharge and spotting, states that her pain is currently a 10 out of 10. She states that she has been feeling well. She has been running subjective fevers. She denies any recent vomiting, or other issues. She does not know of any exacerbating or alleviating factors. 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 Modifying Factors: None Associated Signs & Symptoms: Lower abdominal pains, vaginal bleeding and spotting for at least a week Risk Factors: Right ovarian cyst PFSH Past Medical History Bipolar Disorder: Yes Anxiety: Yes Depression: Yes Diminished Hearing: No Medical other: Yes (Ovarian cyst) Influenza Vaccination: No ?: Not LMP: vaginal bleeding for 2 weeks Past Surgical History Surgical History: No Previous Surgery Social History Alcohol Use: No Tobacco Use: No Substance Use: No Allergies-Medications (Allergen,Severity, Reaction): Coded Allergies: No Known Allergies (Verified Adverse Reaction, Unknown, 10/12/17) Reported Meds & Prescriptions Reported Meds & Active Scripts Active Reported Tylenol (Acetaminophen) 325 Mg Tab 650 Mg PO Q6H PRN Ibuprofen 400 Mg Tab 400 Mg PO Q6H PRN Review of Systems Except as stated in HPI: all other systems reviewed are Neg Physical Exam Narrative GENERAL: Well-developed young female patient currently in mild distress. Awake and oriented 3. SKIN: Focused skin assessment warm/dry. HEAD: Atraumatic. Normocephalic. EYES: Pupils equal and round. No scleral icterus. No injection or drainage. ENT: No nasal bleeding or discharge. Mucous membranes pink and moist. NECK: Trachea midline. No JVD. Supple. CARDIOVASCULAR: Regular rate and rhythm. No murmur appreciated. RESPIRATORY: No accessory muscle use. Clear to auscultation. Breath sounds equal bilaterally. GASTROINTESTINAL: Abdomen soft, non-tender, nondistended. Hepatic and splenic margins not palpable. Benign. GENITOURINARY: Normal external genitalia without lesions or erythema. Vaginal vault without blood or drainage. Cervical os was closed without drainage. No cervical motion tenderness. Uterus nontender and nonenlarged. Bilateral adnexa nontender. MUSCULOSKELETAL: No obvious deformities. No clubbing. No cyanosis. No edema. NEUROLOGICAL: Awake and alert. No obvious cranial nerve deficits. Motor grossly within normal limits. Normal speech. PSYCHIATRIC: Appropriate mood and affect; insight and judgment normal. Data Data Last Documented VS Vital Signs Date Time Temp Pulse Resp B/P (MAP) Pulse Ox O2 Delivery O2 Flow Rate FiO2 10/12/17 19:00 18 10/12/17 18:57 79 10/12/17 18:57 105/65 (78) 100 Room Air 10/12/17 15:35 98.5 Orders Orders Urinalysis - C+S If Indicated (10/12/17 15:33) Ed Urine Pregnancytest Poc (10/12/17 15:33) Complete Blood Count With Diff (10/12/17 16:28) Comprehensive Metabolic Panel (10/12/17 16:28) Gc And Chlamydia Pcr (10/12/17 16:28) Wet Prep Profile (10/12/17 16:28) Us Pelvis Comp Simulation Analyst/Non-Preg (10/12/17 17:21) Ibuprofen (Motrin) (10/12/17 17:45) Labs Laboratory Tests Test 10/12/17 15:30 10/12/17 16:30 10/12/17 16:42 Urine Collection Type CLEAN CATCH Urine Color YELLOW Urine Turbidity CLEAR Urine pH 6.5 Urine Specific [place] 1.020 Urine Protein NEG mg/dL Urine Glucose (UA) NEG mg/dL Urine Ketones NEG mg/dL Urine Occult Blood NEG Urine Nitrite NEG Urine Bilirubin NEG Urine Urobilinogen 0.2 MG/DL Urine Leukocyte Esterase NEG Urine WBC 0-2 /hpf Urine Squamous Epithelial Cells 6-8 /hpf Urine Amorphous Sediment FEW Microscopic Urinalysis Comment CULT NOT INDICATED Urine Collection Time 1530 Clue Cells (Wet Prep) NONE SEEN Vaginal Trichomonas (Wet Prep) NONE SEEN Vaginal Yeast (Wet Prep) NONE SEEN White Blood Count 5.8 TH/MM3 Red Blood Count 4.05 MIL/MM3 Hemoglobin 11.3 GM/DL Hematocrit 34.7 % Mean Corpuscular Volume 85.7 FL Mean Corpuscular Hemoglobin 27.8 PG Mean Corpuscular Hemoglobin Concent 32.5 % Red Cell Distribution Width 13.6 % Platelet Count 217 TH/MM3 Mean Platelet Volume 8.6 FL Neutrophils (%) (Auto) 48.0 % Lymphocytes (%) (Auto) 36.5 % Monocytes (%) (Auto) 7.2 % Eosinophils (%) (Auto) 6.7 % Basophils (%) (Auto) 1.6 % Neutrophils # (Auto) 2.8 TH/MM3 Lymphocytes # (Auto) 2.1 TH/MM3 Monocytes # (Auto) 0.4 TH/MM3 Eosinophils # (Auto) 0.4 TH/MM3 Basophils # (Auto) 0.1 TH/MM3 CBC Comment DIFF FINAL Differential Comment Blood Urea Nitrogen 14 MG/DL Creatinine 0.61 MG/DL Random Glucose 79 MG/DL Total Protein 7.3 GM/DL Albumin 3.6 GM/DL Calcium Level 8.6 MG/DL Alkaline Phosphatase 95 U/L Aspartate Amino Transf (AST/SGOT) 8 U/L Alanine Aminotransferase (ALT/SGPT) 14 U/L Total Bilirubin 0.1 MG/DL Sodium Level 139 MEQ/L Potassium Level 3.9 MEQ/L Chloride Level 108 MEQ/L Carbon Dioxide Level 26.0 MEQ/L Anion Gap 5 MEQ/L Estimat Glomerular Filtration Rate 124 ML/MIN [facility] Medical Decision Making Medical Screen Exam Complete: Yes Emergency Medical Condition: Yes Medical Record Reviewed: Yes Interpretation(s) Laboratory Tests Test 10/12/17 15:30 10/12/17 16:30 10/12/17 16:42 Urine Squamous Epithelial Cells 6-8 /hpf (0-5) Hemoglobin 11.3 GM/DL (11.6-15.3) Hematocrit 34.7 % (35.0-46.0) Eosinophils (%) (Auto) 6.7 % (0.0-4.0) Aspartate Amino Transf (AST/SGOT) 8 U/L (15-37) Total Bilirubin 0.1 MG/DL (0.2-1.0) Chloride Level 108 MEQ/L (98-107) Differential Diagnosis UTI versus cervicitis versus ovarian cyst versus versus dehydration versus metabolic issues versus dysfunctional uterine bleeding Narrative Course Abdomen is fairly benign. Pelvic exam was fairly unremarkable. Lab work was fairly unremarkable. She does not have a UTI. Ultrasound is showing a right ovarian cyst but no signs of torsion. 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 Return for new issues as needed. The plan has been discussed with her and she states understanding. Diagnosis Primary Impression: Pelvic pain in female Med/Other Pt SpecificInfo: Prescription(s) given Scripts Ibuprofen (Ibuprofen) 600 Mg Tab 600 MG PO Q6H Y for Pain/Inflammation, #20 TAB 0 Refills Prov: Johnathan Brandt MD 10/12/17 Disposition: 01 DISCHARGE HOME Condition: Stable Johnathan Brandt MD Oct 12, 2017 16:39
[2017-10-12 16:51] VITALS: BP 98/72; PULSE 76; RESP 14; O2SAT 97
[2017-10-12 17:05] LABS: CHLORIDE 108 MEQ/L (98-107); SODIUM (NA) 139 MEQ/L (136-145)
[2017-10-12 17:09] LABS: ALBUMIN 3.6 GM/DL (3.4-5.0); CALCIUM 8.6 MG/DL (8.5-10.1); GLUCOSE,RANDOM 79 MG/DL (74-106)
[2017-10-12 17:10] LABS: BLOOD UREA NITROGEN 14 MG/DL (7-18)
[2017-10-12 17:12] LABS: ALT (GPT) 14 U/L (10-53); AST (GOT) 8 U/L (15-37); CREATININE 0.61 MG/DL (0.50-1.00); GLOMERULAR FILTRATION RATE 124 ML/MIN (>89)
[2017-10-12 17:14] LABS: TOTAL BILIRUBIN ADULT 0.1 MG/DL (0.2-1.0); TOTAL PROTEIN 7.3 GM/DL (6.4-8.2)
[2017-10-12 17:15] LABS: ALKALINE PHOSPHATASE 95 U/L (45-117)
[2017-10-12 17:17] LABS: AUTOMATED NEUTROPHIL # 2.8 TH/MM3 (1.8-7.7); BASOPHIL # 0.1 TH/MM3 (0-0.2); BASOPHIL % 1.6 % (0.0-2.0); EOSINOPHIL # 0.4 TH/MM3 (0-0.4); EOSINOPHIL % 6.7 % (0.0-4.0); HEMATOCRIT 34.7 % (35.0-46.0); HEMOGLOBIN 11.3 GM/DL (11.6-15.3); LYMPH % 36.5 % (9.0-44.0); LYMPHOCYTE # 2.1 TH/MM3 (1.0-4.8); MEAN CELL VOLUME 85.7 FL (80.0-100.0); MEAN CORPUSCULAR HEMOGLOBIN 27.8 PG (27.0-34.0); MEAN CORPUSCULAR HGB CONC 32.5 % (32.0-36.0); MEAN PLATELET VOLUME 8.6 FL (7.0-11.0); MONO % 7.2 % (0.0-8.0); MONOCYTE # 0.4 TH/MM3 (0-0.9); PLATELET COUNT 217 TH/MM3 (150-450); RED BLOOD COUNT 4.05 MIL/MM3 (4.00-5.30); RED CELL DISTRIBUTION WIDTH 13.6 % (11.6-17.2); WHITE BLOOD COUNT 5.8 TH/MM3 (4.0-11.0)
[2017-10-12] MEDS ORDERED: IBUPROFEN 600 MG TAB PO ONE (17:45)
[2017-10-12 17:53] VITALS: BP 107/71; PULSE 78; O2SAT 98
[2017-10-12 18:57] VITALS: BP 105/65; PULSE 79; RESP 16; O2SAT 100
[2017-10-12 19:00] VITALS: RESP 18
--- NOTE | 2017-10-12 19:56 | RADRPT ---
EXAM DATE/TIME: 10/12/2017 19:13 [facility] COMPARISON: No previous studies available for comparison. INDICATIONS : Pelvic pain. MEDICAL HISTORY : Ovarian cyst. Bipolar disorder. Depression. Anxiety. SURGICAL HISTORY : None. ENCOUNTER: Subsequent ACUITY: 2 weeks PAIN SCORE: 9/10 LOCATION: Bilateral pelvis MEASUREMENTS: UTERUS: 7.7 x 5.8 x 3.7 cm ENDOMETRIAL STRIPE: 9 mm RIGHT OVARY: 5.3 x 4.3 x 5.1 cm LEFT OVARY: 3.4 x 4.0 x 2.2 cm FINDINGS: UTERUS: The myometrium has homogeneous echotexture without mass. RIGHT OVARY: Ovary contains no mass or significant cystic lesion. 4.2 cm cyst right ovary. LEFT OVARY: Ovary contains no mass or significant cystic lesion. MISCELLANEOUS: No free fluid. CONCLUSION: Probable 2 cm right ovarian cyst. Positive blood flow to both ovaries without evidence for torsion. Declan Rai MD on October 12, 2017 at 19:50 Board Certified Radiologist. This report was verified electronically.
[2017-10-12] MEDS ORDERED: IBUP-232 PO (20:14)
[2017-10-12 20:41] VITALS: BP 107/72
== END 2017-10-12 20:47 | disposition home or self-care (01) ==
LOC: PHED 15:27
DX: R10.2 Pelvic and perineal pain (principal); N83.201 Unspecified ovarian cyst, right side; F31.9 Bipolar disorder, unspecified; F41.9 Anxiety disorder, unspecified
CPT/HCPCS: 76856; 80053; 81001; 84703; 85025; 87210; 87491; 87591; 99284

== ENCOUNTER 2017-10-19 13:13 | Emergency (ER) | payer OTHER ==
[~2017-10-19] VITALS: Ht 167.6 cm; Wt 62.0 kg
[~2017-10-19 13:13] MED LIST changes: -ALBU6.7H INH; -AZIT250T3 PO; -BUSP5TAB PO; -CELE20TA PO; -CEPH-460 PO; -CLAR10CA3 PO; +IBUP-232 PO; +IBUP1TAB5 PO; -MACR100C2 PO; -MONOTAB PO; -OMEP20TA93 PO; -PHEN0.4T PO; +TYLE325T PO
[2017-10-19 13:22] VITALS: BP 110/63; PULSE 110; RESP 18; TEMP 97.7; O2SAT 99
[2017-10-19 13:51] LABS: BASOPHIL % 0.6 % (0.0-2.0); EOSINOPHIL # 0.3 TH/MM3 (0-0.4); EOSINOPHIL % 4.5 % (0.0-4.0); HEMATOCRIT 36.7 % (35.0-46.0); HEMOGLOBIN 12.3 GM/DL (11.6-15.3); LYMPH % 25.2 % (9.0-44.0); LYMPHOCYTE # 1.5 TH/MM3 (1.0-4.8); MEAN CELL VOLUME 86.3 FL (80.0-100.0); MEAN CORPUSCULAR HEMOGLOBIN 28.9 PG (27.0-34.0); MEAN CORPUSCULAR HGB CONC 33.4 % (32.0-36.0); MEAN PLATELET VOLUME 8.6 FL (7.0-11.0); MONO % 4.8 % (0.0-8.0); MONOCYTE # 0.3 TH/MM3 (0-0.9); NEUT % 64.9 % (16.0-70.0); PLATELET COUNT 214 TH/MM3 (150-450); RED BLOOD COUNT 4.25 MIL/MM3 (4.00-5.30); RED CELL DISTRIBUTION WIDTH 15.3 % (11.6-17.2); WHITE BLOOD COUNT 6.1 TH/MM3 (4.0-11.0)
--- NOTE | 2017-10-19 13:54 | PD ---
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 This patient complains of vaginal bleeding. Duration is on and off for 2-3 weeks. 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 She has had 2 ultrasounds revealing a right ovarian cyst. She does not think she is but not using control. She has not followed up with [facility]. Severity is moderate. No alleviating factors. No exacerbating factors. PFSH Past Medical History Bipolar Disorder: Yes Anxiety: Yes Depression: Yes Diminished Hearing: No ?: Not LMP: 07/10/17 Social History Alcohol Use: No Tobacco Use: No Substance Use: No Allergies-Medications (Allergen,Severity, Reaction): Coded Allergies: No Known Allergies (Verified Adverse Reaction, Unknown, 10/12/17) Reported Meds & Prescriptions Reported Meds & Active Scripts Active Ibuprofen 600 Mg Tab 600 Mg PO Q6H PRN Reported Tylenol (Acetaminophen) 325 Mg Tab 650 Mg PO Q6H PRN Ibuprofen 400 Mg Tab 400 Mg PO Q6H PRN Review of Systems General / Constitutional: No: Fever Eyes: No: Visual changes HENT: No: Headaches Cardiovascular: No: Chest Pain or Discomfort Respiratory: No: Shortness of Breath Gastrointestinal: No: Abdominal Pain Genitourinary: Positive: Vaginal Bleeding, No: Dysuria Musculoskeletal: No: Pain Skin: No Rash Neurologic: No: Weakness Psychiatric: No: Depression Endocrine: No: Polydipsia Hematologic/Lymphatic: No: Easy Bruising Physical Exam Narrative GENERAL: Well-nourished, well-developed patient in no apparent distress. SKIN: Focused skin assessment reveals no rash and nodules. Skin is Warm and dry. HEAD: Atraumatic. Normocephalic. EYES: Pupils equal and round. No scleral icterus. No injection or drainage. ENT: No nasal bleeding or discharge. Mucous membranes pink and moist. NECK: Trachea midline. No JVD. CARDIOVASCULAR: Regular rate and rhythm. No murmur appreciated. RESPIRATORY: No accessory muscle use. Clear to auscultation. Breath sounds equal bilaterally. GASTROINTESTINAL: Abdomen soft, non-tender, nondistended. Hepatic and splenic margins not palpable. MUSCULOSKELETAL: No obvious deformities. No clubbing. No cyanosis. No edema. NEUROLOGICAL: Awake and alert. No obvious cranial nerve deficits. Motor grossly within normal limits. Normal speech. PSYCHIATRIC: Appropriate mood and affect; insight and judgment normal. Pelvic: Small amount of blood in the vault. No active hemorrhaging. Cervix closed. No adnexal mass or tenderness Data Data Last Documented VS Vital Signs Date Time Temp Pulse Resp B/P (MAP) Pulse Ox O2 Delivery O2 Flow Rate FiO2 10/19/17 13:22 97.7 110 18 110/63 (79) 99 Room Air Orders Orders Complete Blood Count With Diff (10/19/17 13:38) Beta Hcg (Quant/Titer) (10/19/17 13:38) Iv Access Insert/Monitor (10/19/17 13:38) Labs Laboratory Tests Test 10/19/17 13:45 White Blood Count 6.1 TH/MM3 Red Blood Count 4.25 MIL/MM3 Hemoglobin 12.3 GM/DL Hematocrit 36.7 % Mean Corpuscular Volume 86.3 FL Mean Corpuscular Hemoglobin 28.9 PG Mean Corpuscular Hemoglobin Concent 33.4 % Red Cell Distribution Width 15.3 % Platelet Count 214 TH/MM3 Mean Platelet Volume 8.6 FL Neutrophils (%) (Auto) 64.9 % Lymphocytes (%) (Auto) 25.2 % Monocytes (%) (Auto) 4.8 % Eosinophils (%) (Auto) 4.5 % Basophils (%) (Auto) 0.6 % Neutrophils # (Auto) 4.0 TH/MM3 Lymphocytes # (Auto) 1.5 TH/MM3 Monocytes # (Auto) 0.3 TH/MM3 Eosinophils # (Auto) 0.3 TH/MM3 Basophils # (Auto) 0.0 TH/MM3 CBC Comment DIFF FINAL Differential Comment Human Chorionic Gonadotropin, Quant LESS THAN 1 MIU/ML MDM Medical Decision Making Medical Screen Exam Complete: Yes Emergency Medical Condition: Yes Medical Record Reviewed: Yes Differential Diagnosis Ectopic, threatened , anemia Narrative Course I have reviewed the patient's electronic medical record. Patient's been here multiple times recently. She has had 2 ultrasounds which showed 2 cm right ovarian cyst IV placed and labs sent CBC is normal Beta hCG is negative Stable for outpatient gynecology follow-up Diagnosis Primary Impression: Vaginal bleeding Additional Instructions: The patient was advised to follow up with [facility] physician and return if they worsen. Med/Other Pt SpecificInfo: Other Disposition: 01 DISCHARGE HOME Condition: Stable Stoney Caceres MD Oct 19, 2017 13:54
== END 2017-10-19 14:46 | disposition home or self-care (01) ==
LOC: NEPD 13:13
DX: N93.9 Abnormal uterine and vaginal bleeding, unspecified (principal); N83.201 Unspecified ovarian cyst, right side
CPT/HCPCS: 84702; 85025; 99283

== ENCOUNTER 2017-10-31 09:21 | Emergency (ER) | payer OTHER ==
[~2017-10-31] VITALS: Ht 167.6 cm; Wt 62.8 kg
[2017-10-31 09:22] VITALS: BP 110/65; PULSE 74; RESP 18; TEMP 97.3; O2SAT 99
--- NOTE | 2017-10-31 09:41 | PD ---
HPI Chief Complaint: Laceration/Skin Injury Time Seen by Provider: 09:28 Travel History International Travel<30 days: No Contact w/Intl Traveler<30days: No Traveled to known affect area: No History of Present Illness HPI 22-year-old female presents emergency department for evaluation of left index finger pain that started this morning. Patient states that she believes may been bit by a spider resulting in swelling of the PIP but has subsequently become more swollen and extended to the MCP. Patient states the pain is mild to moderate in severity, worse with flexion of her finger. Says the pain has occasionally sharp, shooting pain. Denies numbness or tingling. Denies weakness. Denies trauma. Denies chronic medical issues or medication use. Denies fever or chills. she has no other complaints today. PFSH Past Medical History Bipolar Disorder: Yes Anxiety: Yes Depression: Yes Diminished Hearing: No Tetanus Vaccination: Unknown ?: Not Social History Alcohol Use: No Tobacco Use: No Substance Use: No Allergies-Medications (Allergen,Severity, Reaction): Coded Allergies: No Known Allergies (Verified Adverse Reaction, Unknown, 10/31/17) Reported Meds & Prescriptions Reported Meds & Active Scripts Active No Active Prescriptions or Reported Medications Review of Systems Except as stated in HPI: all other systems reviewed are Neg Physical Exam Narrative GENERAL: Well-nourished, well-developed patient. SKIN: Focused skin assessment warm/dry. HEAD: Normocephalic. EYES: No scleral icterus. No injection or drainage. NECK: Supple, trachea midline. No JVD or lymphadenopathy. CARDIOVASCULAR: Regular rate and rhythm without murmurs, gallops, or rubs. RESPIRATORY: Breath sounds equal bilaterally. No accessory muscle use. MUSCULOSKELETAL: No cyanosis, or edema. left hand-mild ecchymosis over PIP of index finger with accompanying edema, mild edema extending to the MCP of the index finger. Mild erythema present without lymph angiopathic spread. Nearly full range of motion of finger without clicking or popping. BACK: Nontender without obvious deformity. No CVA tenderness. Data Data Last Documented VS Vital Signs Date Time Temp Pulse Resp B/P (MAP) Pulse Ox O2 Delivery O2 Flow Rate FiO2 10/31/17 09:22 97.3 74 18 110/65 (80) 99 Orders Orders Hand, Complete ([id number]) (10/31/17 ) [facility] Medical Decision Making Medical Screen Exam Complete: Yes Emergency Medical Condition: Yes Differential Diagnosis Left index finger cellulitis, bursitis, ganglionic cyst Narrative Course 22-year-old female presents emergency department for evaluation of left index finger pain that started this morning. Patient states that she believes may been bit by a spider resulting in swelling of the PIP but has subsequently become more swollen and extended to the MCP. Patient states the pain is mild to moderate in severity, worse with flexion of her finger. Says the pain has occasionally sharp, shooting pain. Denies numbness or tingling. Denies weakness. Denies trauma. Denies chronic medical issues or medication use. Denies fever or chills. she has no other complaints today. Vital signs are stable. Physical exam findings consistent with bursitis versus developing cellulitis. X-ray ordered to rule out acute injury. No acute process noted. There is a concern for developing cellulitis. Will prescribe Keflex. Advised that she should follow-up with primary care physician within 2-3 days. Keep elevated and use ice to reduce swelling. Return to the ED for worsening or persistent symptoms. Diagnosis Primary Impression: Cellulitis Qualified Codes: L03.012 - Cellulitis of left finger Referrals: [facility] Primary Care Physician Additional Instructions: Use ice or heat for symptom relief. If no contraindications, you may use Tylenol or Motrin per package instructions for your pain. Elevate the joint above the heart to reduce swelling. You may use compression with Toni wrap or similar to reduce swelling. If symptoms persist or worsen, return to the emergency department. Follow up with your primary care physician within 2 days. Scripts No Active Prescriptions or Reported Meds Disposition: 01 DISCHARGE HOME Condition: Stable Miranda Encinas October 31, 2017 09:41
--- NOTE | 2017-10-31 09:56 | RADRPT ---
EXAM DATE/TIME: 10/31/2017 09:43 [place] COMPARISON: No previous studies available for comparison. INDICATIONS : Left 2nd digit pain and swelling, no known injury. MEDICAL HISTORY : None. SURGICAL HISTORY : None. ENCOUNTER: Initial ACUITY: 1 day PAIN SCORE: 6/10 LOCATION: Left 2nd digit FINDINGS: Three view examination of the left hand demonstrates no soft tissue swelling, dislocation, or fractur e. The carpal bones appear intact. The interphalangeal and metacarpophalangeal joints are intact. Bony mineralization is normal. CONCLUSION: Unremarkable examination of the left hand. Declan Rai MD on October 31, 2017 at 9:52 Board Certified Radiologist. This report was verified electronically.
[2017-10-31] MEDS ORDERED: CEPH-460 PO (10:23)
[2017-11-01] MEDS ORDERED: BACT800T5 PO (11:57)
== END 2017-10-31 10:33 | disposition home or self-care (01) ==
LOC: PHEFT 09:21
DX: L03.012 Cellulitis of left finger (principal); F31.9 Bipolar disorder, unspecified; F41.9 Anxiety disorder, unspecified
CPT/HCPCS: 73130; 99283

== ENCOUNTER 2017-11-01 11:23 | Emergency (ER) | payer OTHER ==
[~2017-11-01] VITALS: Ht 167.6 cm; Wt 61.0 kg
[~2017-11-01 11:23] MED LIST changes: +CEPH-460 PO; -IBUP-232 PO; -IBUP1TAB5 PO; -TYLE325T PO
[2017-11-01 11:32] VITALS: BP 114/70; PULSE 90; RESP 16; TEMP 97.7; O2SAT 97
[2017-11-01] MEDS ORDERED: BACT800T5 PO (11:57)
--- NOTE | 2017-11-01 12:08 | PD ---
HPI Chief Complaint: Skin Problem Time Seen by Provider: 11:53 Travel History International Travel<30 days: No Contact w/Intl Traveler<30days: No Traveled to known affect area: No History of Present Illness HPI 22-year-old female presents emergency department for reevaluation of left index finger pain that started yesterday morning. Patient has been unable to fill her medication because of cost. Patient says the pain is about the same which is mild to moderate in severity, worse with flexion of the fingers. She denies any decreased range of motion however. Denies numbness or tingling. Says she has some redness and swelling of the left index and middle finger. She noticed to pustules form last night. She has no other complaints today. Denies fevers or chills. PFSH Past Medical History Bipolar Disorder: Yes Anxiety: Yes Depression: Yes Diminished Hearing: No ?: Not LMP: TWO MONTHS AGO Past Surgical History Surgical History: No Previous Surgery Social History Alcohol Use: No Tobacco Use: No Substance Use: No Allergies-Medications (Allergen,Severity, Reaction): Coded Allergies: No Known Allergies (Verified Adverse Reaction, Unknown, 11/01/17) Reported Meds & Prescriptions Reported Meds & Active Scripts Active Bactrim DS (Sulfamethoxazole-Trimethoprim) 800-160 Mg Tab 1 Tab PO BID Keflex (Cephalexin) 500 Mg Cap 500 Mg PO Q8H 7 Days Review of Systems Except as stated in HPI: all other systems reviewed are Neg Physical Exam Narrative GENERAL: Well-nourished, well-developed patient. SKIN: Focused skin assessment warm/dry. HEAD: Normocephalic. EYES: No scleral icterus. No injection or drainage. NECK: Supple, trachea midline. No JVD or lymphadenopathy. CARDIOVASCULAR: Regular rate and rhythm without murmurs, gallops, or rubs. RESPIRATORY: Breath sounds equal bilaterally. No accessory muscle use. MUSCULOSKELETAL: No cyanosis, or edema. Left index and middle finger mild erythema over the MCP, minimal edema. No lymph angiopathic spread. 2 small pustules over the index and middle finger. Neurovascular intact. BACK: Nontender without obvious deformity. No CVA tenderness. Data Data Last Documented VS Vital Signs Date Time Temp Pulse Resp B/P (MAP) Pulse Ox O2 Delivery O2 Flow Rate FiO2 11/01/17 11:32 97.7 90 16 114/70 (85) 97 Orders Orders Sulfamet-Trimeth Ds 800-160 Mg (Bactrim (11/01/17 12:15) Ed Discharge Order (11/01/17 12:09) [facility] Medical Decision Making Medical Screen Exam Complete: Yes Emergency Medical Condition: Yes Differential Diagnosis Cellulitis, herpetic rodrigo, erysipelas Narrative Course 22-year-old female presents emergency department for reevaluation of left index finger pain that started yesterday morning. Patient has been unable to fill her medication because of cost. Patient says the pain is about the same which is mild to moderate in severity, worse with flexion of the fingers. She denies any decreased range of motion however. Says she has some redness and swelling of the left index and middle finger. She noticed to pustules form last night. She has no other complaints today. Denies fevers or chills. Vital signs are stable. Physical exam findings are actually slightly improved regarding the edema. Erythema does not appear to extend any further than yesterday. two 2mm pustules formed over the index and middle finger since yesterday. First dose of Bactrim administered in the emergency department. Patient should not fill Keflex. She should fill Bactrim as this is no cost at [facility]. Says she will fill Bactrim today. She is strongly advised to follow up with a PCP for her care. Case management gave patient information about [place]. Diagnosis Primary Impression: Cellulitis Qualified Codes: L03.012 - Cellulitis of left finger Additional Impression: Nonadherence to medication Referrals: [facility] Additional Instructions: You must follow-up with the primary care physician for further treatment and evaluation. This will reduce complications involving your care. You may use [id number] triple antibiotic ointments for your injury daily. If you developed increased redness, swelling, or pain return to the emergency department as this could be a sign of infection. You received her first dose of Bactrim here in the emergency department today. Start your next dose tonight. Scripts Sulfamethoxazole-Trimethoprim (Bactrim DS) 800-160 Mg Tab 1 TAB PO BID for Infection, #14 TAB 0 Refills Prov: Rao Gates MD 11/01/17 Disposition: 01 DISCHARGE HOME Condition: Stable Miranda Encinas November 01, 2017 12:08
[2017-11-01] MEDS ORDERED: SULFAMETHOXAZOLE-TRIMETHOPRIM DS 800-160 MG TAB PO ONE (12:15)
== END 2017-11-01 12:27 | disposition home or self-care (01) ==
LOC: PHEFT 11:23
DX: L03.012 Cellulitis of left finger (principal); Z91.14 Patient's other noncompliance with medication regimen; F31.9 Bipolar disorder, unspecified; F41.9 Anxiety disorder, unspecified
CPT/HCPCS: 99283